=== PATIENT | male | born 1970 | race Caucasian/White ===

== ENCOUNTER 2022-01-22 12:02 | Emergency (ER) | payer BC ==
[2022-01-22 12:20] VITALS: BP 130/66
--- NOTE | 2022-01-22 13:24 | ED Physician Documentation ---
PD HPI URI - Stated complaint Stated Complaint: COVID EXPOSURE - Chief complaint Chief Complaint: Resp - History obtained from History obtained from: Patient - History of Present Illness Timing - onset: Yesterday Timing details: Other (He does not have any symptoms currently. He was exposed close contact for the last 2 days with his testing positive for COVID and having viral symptoms.) Associated symptoms: No: Fever, Chills, Nasal congestion, Sore throat, Dry cough, NVD Contributing factors: Sick contact (His has viral symptoms and coughing and tested positive home COVID test last 2 days. They were supposed to be traveling to the [facility] today.) Similar symptoms before: Has not had sx before Review of Systems Constitutional: denies: Fever, Chills Nose: denies: Rhinorrhea / runny nose, Congestion Throat: denies: Sore throat Respiratory: denies: Cough GI: denies: Nausea, Vomiting Skin: denies: Rash PD PAST MEDICAL HISTORY - Past Medical History Cardiovascular: None Respiratory: None Endocrine/Autoimmune: None - Present Medications Home Medications: Ambulatory Orders Medication Instructions Recorded Confirmed Nirmatrelvir/Ritonavir [Paxlovid 1 each PO BID 5 Days #1 kit 01/22/22 2X150 mg-100 mg (Eua)] - Allergies Allergies/Adverse Reactions: Allergies Allergy/AdvReac Type Severity Reaction Status Date / Time cefuroxime [From Ceftin] Allergy Anaphylaxis Verified 01/22/22 12:22 PD ED PE NORMAL - Vitals Vital signs reviewed: Yes - General General: Alert and oriented X 3, No acute distress, Well developed/nourished - HEENT HEENT: Pharynx benign - Neck Neck: Supple, no meningeal sign, No adenopathy - Cardiac Cardiac: RRR, No murmur - Respiratory Respiratory: Clear bilaterally - Derm Derm: Normal color, Warm and dry - Neuro Neuro: Alert and oriented X 3, Normal speech Results - Vitals Vitals: Vital Signs - 24 hr 01/22/22 12:17 Temperature 36.1 C L Heart Rate 78 Respiratory 16 Rate Blood Pressure 130/66 O2 Saturation 99 Oxygen O2 Source Room air - Labs Labs: Laboratory Tests 01/22/22 12:27 SARS-CoV-2 (PCR) NOT DETECTED PD MEDICAL DECISION MAKING - ED course Complexity details: reviewed results, d/w patient Departure - Departure Disposition: 01 Home, Self Care Clinical Impression: Exposure to confirmed case of COVID-19 Condition: Stable Record reviewed to determine appropriate education?: Yes Prescriptions: Nirmatrelvir/Ritonavir [Paxlovid 2X150 mg-100 mg (Eua)] 1 each PO BID 5 Days #1 kit Comments: Your COVID PCR test is negative at this time. Hopefully you will avoid getting it. It is possible to just be too early in the infection to be detected. You can do home testing over the next 2 to 3 days and if this remains negative, then that would be a good thing. Stay well-hydrated. If you do become positive for COVID given your close contact, then you could take the pack Slo-Bid prescription to the pharmacy and obtain the kit.
== END 2022-01-22 14:26 | disposition home or self-care (01) ==
LOC: ED 12:02
DX: Z20.822 Contact with and (suspected) exposure to COVID-19 (principal)
CPT/HCPCS: 99281; 99283